=== PATIENT | male | born 1990 | race Caucasian/White ===

== ENCOUNTER 2016-11-24 17:10 | Emergency (ER) | payer OTHER ==
[2016-11-24] MEDS ORDERED: Lidocaine PATCH 5%* 1 PATCH TRANSDERM ONE (17:35)
--- NOTE | 2016-11-24 17:51 | ED ---
Back Pain - HPI Summary HPI Summary: The patient is a 26 year old male presenting to ED for complaint of "I think I tore my back shoveling." Reports worsening low back pain with history of chronic back pain for "10 years." Additional complaint of left upper toothache "for a long time." Denies fever, foul taste or odor, inability to swallow, trismus, abdominal complaint, vomiting, diarrhea, urinary symtoms, fecal or urinary incontinence, paresthesias, unilateral weakness. Patient denies past medical history. Is s/p tonsillectomy. FH of mother with "back problems." SH: Admits to smoking and recreational dilaudid use "off the street." Per review of prior [facility] admission, history of polysubstance abuse and multiple narcotic OD. - History of Current Complaint Chief Complaint: EDBackInjuryPain Stated Complaint: BACK PAIN Time Seen by Provider: 11/24/16 17:15 Pain Intensity: 8 - Allergies/Home Medications Allergies/Adverse Reactions: Allergies Allergy/AdvReac Type Severity Reaction Status Date / Time No Known Allergies Allergy Verified 04/29/16 00:51 PMH/Surg Hx/FS Hx/Imm Hx Sensory History: Reports: Hx Contacts or Glasses Opthamlomology History: Reports: Hx Contacts or Glasses Psychiatric History: Reports: Hx Anxiety, Hx Attention Deficit Hyperactivity Disorder, Hx Inpatient Treatment, Hx Substance Abuse Denies: Hx Eating Disorder, Hx Panic Disorder, Hx Post Traumatic Stress Disorder, Hx Schizophrenia, Hx Bipolar Disorder, Hx Suicide Attempt, Hx of Violent Episodes Against Others, Other Psychiatric Issues/Disorders Infectious Disease History: Denies: Traveled Outside the [place] in Last 30 Days - Family History Known Family History: Positive: Other - Anxiety, depression - - Social History Alcohol Use: Occasionally Hx Substance Use: Yes Substance Use Type: Reports: Marijuana, Prescribed Substance Use Comment - Amount & Last Used: OVERUSE OF PRESCRIPTION DRUGS Hx Tobacco Use: Yes Smoking Status (MU): Light Every Day Tobacco Smoker Review of Systems Constitutional: Negative Gastrointestinal: Negative Genitourinary: Negative Negative: dysuria, frequency, hematuria, incontinence Positive: Myalgia. Negative: Edema Skin: Negative Negative: Rash Neurological: Negative Negative: Weakness, Paresthesia, Numbness All Other Systems Reviewed And Are Negative: Yes Physical Exam Triage Information Reviewed: Yes Vital Signs On Initial Exam: Initial Vitals Temp Pulse Resp BP Pulse Ox 98.7 F 83 16 130/80 100 11/24/16 17:14 11/24/16 17:14 11/24/16 17:14 11/24/16 17:14 11/24/16 17:14 Vital Signs Reviewed: Yes Appearance: Positive: Well-Appearing, No Pain Distress - speaking calmly without guarding or grimace; no acute distress, Well-Nourished Skin: Positive: Warm, Skin Color Reflects Adequate Perfusion, Dry Eyes: Positive: Normal - Anicteric ENT: Positive: Hearing grossly normal Neck: Positive: Supple, Nontender Respiratory/Lung Sounds: Positive: Clear to Auscultation, Breath Sounds Present. Negative: Decreased Breath Sounds, Rales, Rhonchi, Wheezes Cardiovascular: Positive: Normal - radial pulse 2+, RRR, S1, S2. Negative: Murmur, Rub, S3 Abdomen Description: Positive: Nontender, No Organomegaly, Soft. Negative: CVA Tenderness (R), CVA Tenderness (L), Distended, Guarding, Hepatomegaly, Splenomegaly Bowel Sounds: Positive: Present Musculoskeletal: Positive: Strength/ROM Intact - 5/5 muscle strength UE/LE bilaterally, Pain @ - mild lumbar paraspinous tenderness without palpable spasm Neurological: Positive: Normal, Sensory/Motor Intact, Reflexes Intact - brachioradialis and patellar 2+, Normal Gait, Babinski Bilateral - downward, Other - no foot drop Psychiatric: Positive: Normal AVPU Assessment: Alert - [place] Coma Scale Coma Scale Total: 15 Procedures - Procedure Summary Procedure Summary: Left superior alveolar dental block with bupivacaine 1mL without complication or complaint. Adequate pain relief in 1 minute after procedure. Diagnostics - Vital Signs Vital Signs Temp Pulse Resp BP Pulse Ox 11/24/16 17:14 98.7 F 83 16 130/80 100 - Laboratory Lab Statement: Any lab studies that have been ordered have been reviewed, and results considered in the medical decision making process. Back Pain Course/Dx - Course Assessment/Plan: Impression of exacerbation of chronic low back pain and chronic dental pain. Administered dental block with adequate dental pain relief. Rx lidocaine patches. Advised to continue with OTC ibuprofen, rest and icing. Given history of multiple OD of previously prescribed Dilaudid and stolen fentanyl patches from father, will not prescribe any controlled substance. Advised to follow-up with PCP in 1-2 weeks. - Diagnoses Provider Diagnoses: Lumbar strain, Chronic back pain, Dental caries Discharge - Discharge Plan Condition: Stable Disposition: HOME Prescriptions: Lidocaine PATCH 5%* [Lidoderm 5% Patch*] 1 patch TRANSDERM DAILY #10 patch Patient Education Materials: Low Back Strain (ED), Chronic Back Pain (ED), Toothache (ED) Referrals: Felisha Sloan MD [Primary Care Provider] -
[2016-11-24 18:16] VITALS: BP 126/80
[2016-11-24] MEDS ORDERED: Lidocaine Patch REMOVE* 1 NOTE MISC SCH (21:00)
== END 2016-11-24 18:14 | disposition home or self-care (01) ==
LOC: ED 17:10
DX: S39.012A Strain of muscle, fascia and tendon of lower back, initial encounter (principal); K02.9 Dental caries, unspecified; M54.9 Dorsalgia, unspecified; X50.3XXA Overexertion from repetitive movements, initial encounter; Y93.H1 Activity, digging, shoveling and raking; Y92.9 Unspecified place or not applicable; F17.210 Nicotine dependence, cigarettes, uncomplicated
CPT/HCPCS: 99281; A9270-GY

== ENCOUNTER 2016-12-13 17:17 | Emergency (ER) | payer OTHER ==
[2016-12-13] MEDS ORDERED: Ketorolac INJ* 30 MG/ML 1 ML VIAL IV PUSH ONE (17:39)
--- NOTE | 2016-12-13 17:56 | ED ---
Throat Pain/Nasal Congestion - HPI Summary HPI Summary: 26M w/ PMH of opioid dependence presents with right sided dental swelling for 2 days. He states that his molar on the lower right side of his mouth had been hurting him off and on for months. He states that two days ago he started to notice swelling in the area. The swelling has increased over the past two days. He denies any difficulty swallowing. He denies any neck pain, chest pain or SOB. He denies any fevers. He is on suboxone for drug rehab. He does not have a dentist at this time. - History of Current Complaint Chief Complaint: EDDentalPain Time Seen by Provider: 12/13/16 17:32 - Allergies/Home Medications Allergies/Adverse Reactions: Allergies Allergy/AdvReac Type Severity Reaction Status Date / Time Acetaminophen [From Tylenol] Allergy Hives Verified 12/13/16 17:30 Haloperidol [From Haldol] Allergy dystonia Verified 12/13/16 17:30 PMH/Surg Hx/FS Hx/Imm Hx Endocrine/Hematology History: Denies: Hx Anticoagulant Therapy Cardiovascular History: Denies: Hx Hypertension Sensory History: Reports: Hx Contacts or Glasses Opthamlomology History: Reports: Hx Contacts or Glasses Psychiatric History: Reports: Hx Anxiety, Hx Attention Deficit Hyperactivity Disorder, Hx Inpatient Treatment, Hx Substance Abuse Denies: Hx Eating Disorder, Hx Panic Disorder, Hx Post Traumatic Stress Disorder, Hx Schizophrenia, Hx Bipolar Disorder, Hx Suicide Attempt, Hx of Violent Episodes Against Others, Other Psychiatric Issues/Disorders Infectious Disease History: No Infectious Disease History: Denies: Traveled Outside the [place] in Last 30 Days - Family History Known Family History: Positive: Other - Anxiety, depression - - Social History Alcohol Use: Occasionally Hx Substance Use: Yes Substance Use Type: Reports: Prescribed Substance Use Comment - Amount & Last Used: Pt states he's 2 weeks clean from heroin and is on suboxone Hx Tobacco Use: Yes Smoking Status (MU): Light Every Day Tobacco Smoker Review of Systems Negative: Fever Positive: Dental Pain, Other - swelling of right side of face Negative: Chest Pain Negative: Shortness Of Breath All Other Systems Reviewed And Are Negative: Yes Physical Exam Triage Information Reviewed: Yes Vital Signs On Initial Exam: Initial Vitals Temp Pulse Resp BP Pulse Ox 98.3 F 101 16 146/76 100 12/13/16 17:21 12/13/16 17:21 12/13/16 17:21 12/13/16 17:21 12/13/16 17:21 Vital Signs Reviewed: Yes Appearance: Positive: Well-Appearing Skin: Positive: Warm, Dry Eyes: Positive: Normal, EOMI, CATRACHITO, Conjunctiva Clear ENT: Positive: Pharynx normal, TMs normal. Negative: Trismus, Muffled/hoarse voice Dental: Positive: Percussion Tenderness @ - 30, Other - swelling along mandible Neck: Positive: Supple, Nontender, No Lymphadenopathy Respiratory/Lung Sounds: Positive: Clear to Auscultation, Breath Sounds Present Cardiovascular: Positive: Normal, RRR - [place] Coma Scale Coma Scale Total: 15 Diagnostics - Vital Signs Vital Signs Temp Pulse Resp BP Pulse Ox 12/13/16 17:21 98.3 F 101 16 146/76 100 - Laboratory Result Diagrams: 12/13/16 17:45 12/13/16 17:45 Lab Statement: Any lab studies that have been ordered have been reviewed, and results considered in the medical decision making process. - CT maxillary facial CT Interpretation: Positive (See Comments) CT Interpretation Completed By: Radiologist EENT Course/Dx - Course Course Of Treatment: 26M presents with right side facial swelling for 2 days. had dental pain on tooth 30 off and on for months. denies any fever, chest pain , or SOB. on exam neg trismus. swelling over manidible with percussion tenderness 30. neck nontender. will CT and get labs and give clindamycin. CT shows possible abscess. labs WBC 13, lactic normal. will have continue clindamycin and follow up with oral surgery. discussed pain options that can only give ibuprofen due to being on suboxone. patient understands and agrees with plan - Differential Diagnoses Differential Diagnoses: Dental Abscess, Dental Caries, Fractured Tooth - Diagnoses Provider Diagnoses: Dental abscess Discharge - Discharge Plan Condition: Good Disposition: HOME Prescriptions: Clindamycin CAP* [Cleocin 150 MG CAP*] 150 mg PO TID #87 cap Ibuprofen TAB* [Motrin TAB* 800 MG] 800 mg PO Q6H #25 tab Patient Education Materials: Dental Abscess (ED) Referrals: Felisha Sloan MD [Primary Care Provider] - Goldy Flores MD [Doctor of Dental Medicine] - Phi Sol MD [Doctor of Dental Medicine] - Additional Instructions: Follow up with oral surgery as soon as possible Take antibiotics: 3 tablets three times a day for 10 days Use ibuprofen every 6 hours for pain Avoid hard, crunchy food until seen by dentist Return to ED if develop fever, shortness of breath, chest pain, or any new or worsening symptoms
[2016-12-13 18:09] LABS: Hematocrit 42 % (42-52); Hemoglobin 13.7 g/dl (14.0-18.0); Mean Corpuscular HGB Conc 33 g/dl (31-36); Mean Corpuscular Hemoglobin 28 pg (27-31); Mean Corpuscular Volume 86 fL (80-94); Mean Platelet Volume 9 um3 (7.4-10.4); Red Blood Count 4.84 10^6/ul (4.0-5.4); Red Cell Distribution Width 14 % (10.5-15)
[2016-12-13 18:21] LABS: Albumin 4.7 g/dL (3.2-5.2); BUN/Creatinine Ratio 16.9 (8-20); Calcium 10.2 mg/dL (8.6-10.3); EGFR African American 131.9 (>60); EGFR Non-African American 102.5 (>60); Globulin 3.6 g/dL (2-4); Total Bilirubin 0.4 mg/dL (0.2-1.0); Total Protein 8.3 g/dL (6.4-8.9)
[2016-12-13] MEDS ORDERED: Iohexol 300* (CONTRAST) 10 ML SDV IV ONE (18:23)
--- NOTE | 2016-12-13 19:01 | RAD ---
INDICATION: Right-sided facial swelling. COMPARISON: There are no prior studies available for comparison. TECHNIQUE: Contiguous axial sections of the axial images of the facial bones were obtained and reconstructed in the coronal and sagittal planes. FINDINGS: Soft tissue swelling is noted adjacent to the horizontal ramus of the mid mandible on the right side. There are numerous carious lesions present within the teeth. There is also periapical disease adjacent to several incisor and molar teeth present in the maxilla and mandible with a large cystic lesion with mild peripheral enhancement present adjacent to the first and second molar teeth in the mandible on the right side. This cystic lesion measures 2.0 x 1.7 x 1.4 cm in size and may represent a prominent abscess or a cystic mass. There is mild mucosal thickening within the maxillary and frontal sinuses and moderate mucosal thickening within the ethmoid sinus. There is a nodular area in the inferior portion of the sphenoid sinus suggestive of a mucous retention cyst or polyp measuring 1.5 x 0.8 cm in size. The mastoid air cells and middle ear cavities appear clear. There are mildly prominent submandibular lymph nodes present on the right side measuring up to 0.8 cm in transverse dimension. No other enlarged lymph nodes are seen. The epiglottis and aryepiglottic folds appear to be within normal limits. The retropharyngeal soft tissues appear normal. IMPRESSION: DIFFUSE CARIOUS LESIONS PRESENT THROUGHOUT THE TEETH WELL PERIAPICAL DISEASE WITH A DOMINANT CYSTIC LESION ADJACENT TO THE FIRST AND SECOND MOLAR TEETH IN THE MANDIBLE ON THE RIGHT SIDE MOST CONSISTENT WITH AN ABSCESS OR A CYSTIC MASS. RECOMMEND DENTAL CONSULTATION FOR FURTHER EVALUATION.
[2016-12-13] MEDS ORDERED: Clindamycin 600 MG IVPREMIX(* 600 MG/50 ML SDV IV ONE (19:14)
[2016-12-13 21:05] VITALS: BP 119/82
== END 2016-12-13 21:10 | disposition home or self-care (01) ==
LOC: ED 17:17
DX: K04.7 Periapical abscess without sinus (principal); K08.89 Other specified disorders of teeth and supporting structures; F17.210 Nicotine dependence, cigarettes, uncomplicated
CPT/HCPCS: 36415; 70487; 80053; 83605; 85025; 96374; 99283; J1885; Q9967

== ENCOUNTER 2016-12-15 11:57 | Emergency (ER) | payer OTHER ==
[2016-12-15 12:06] VITALS: BP 125/73
[2016-12-15] MEDS ORDERED: metroNIDAZOLE IV 500 MG/100ML* 500 MG/100 ML BAG IVPB ONE (14:47)
[2016-12-15] MEDS ORDERED: Morphine INJ* 2 MG/ML 1 ML SYRINGE IV ONE (14:47)
--- NOTE | 2016-12-15 15:18 | ED ---
Throat Pain/Nasal Congestion - HPI Summary HPI Summary: Patient is a 26yo M presenting to ED with 4 days of worsening right sided dental pain and cheek swelling. He was seen in the ED 2 days ago and was diagnosed with a dental abscess. CT maxillofacial performed which showed possible abscess or a cystic mass. He was given IV antibiotics Clindamycin and PO Clindamycin as a prescription as well as Ibuprofen. He has a history of opioid dependence and has recently been on suboxone but today states he has not had any in several days. Denies dysphagia but cannot open or close his mouth fully so denies eating anything x 2 days and has been drinking only minimally. Denies any neck pain, SOB, chest pain or pressure, FAITH or weakness. Denies chills and sweats or fevers. He is currently in drug rehab and states he does not have a dentist. He is requesting pain management. - History of Current Complaint Chief Complaint: EDDentalPain Time Seen by Provider: 12/15/16 13:08 Hx Obtained From: Patient Onset/Duration: Sudden Onset Severity: Severe Associated Signs And Symptoms: Positive: Negative Cough: Nonproductive - Epiglottits Risk Factors Epiglottis Risk Factors: Negative - Allergies/Home Medications Allergies/Adverse Reactions: Allergies Allergy/AdvReac Type Severity Reaction Status Date / Time Acetaminophen [From Tylenol] Allergy Hives Verified 12/13/16 17:30 Haloperidol [From Haldol] Allergy dystonia Verified 12/13/16 17:30 PMH/Surg Hx/FS Hx/Imm Hx Previously Healthy: Yes - drug use and on suboxone Endocrine/Hematology History: Denies: Hx Anticoagulant Therapy Cardiovascular History: Denies: Hx Hypertension Sensory History: Reports: Hx Contacts or Glasses Opthamlomology History: Reports: Hx Contacts or Glasses Psychiatric History: Reports: Hx Anxiety, Hx Attention Deficit Hyperactivity Disorder, Hx Inpatient Treatment, Hx Substance Abuse Denies: Hx Eating Disorder, Hx Panic Disorder, Hx Post Traumatic Stress Disorder, Hx Schizophrenia, Hx Bipolar Disorder, Hx Suicide Attempt, Hx of Violent Episodes Against Others, Other Psychiatric Issues/Disorders Infectious Disease History: No Infectious Disease History: Denies: Traveled Outside the [place] in Last 30 Days - Family History Known Family History: Positive: Other - Anxiety, depression - - Social History Occupation: Unemployed Lives: With Family Alcohol Use: Occasionally Hx Substance Use: Yes Substance Use Type: Reports: Prescribed Substance Use Comment - Amount & Last Used: Pt states he's 2 weeks clean from heroin and is on suboxone Hx Tobacco Use: Yes Smoking Status (MU): Light Every Day Tobacco Smoker Review of Systems Constitutional: Negative Positive: Dental Pain - swelling Cardiovascular: Negative Respiratory: Negative Gastrointestinal: Negative Skin: Negative Neurological: Negative Psychological: Normal All Other Systems Reviewed And Are Negative: Yes Physical Exam Triage Information Reviewed: Yes Vital Signs On Initial Exam: Initial Vitals Temp Pulse Resp BP Pulse Ox 98 F 78 16 125/73 100 12/15/16 12:04 12/15/16 12:04 12/15/16 12:04 12/15/16 12:04 12/15/16 12:04 Vital Signs Reviewed: Yes Appearance: Positive: Well-Nourished, Pain Distress Skin: Positive: Warm Head/Face: Positive: Normal Head/Face Inspection Eyes: Positive: CATRACHITO, Conjunctiva Clear Dental: Positive: Percussion Tenderness @ - right sided upper and lower jaw tenderness, Gross Decay/Caries @ - throughout, Dental Fracture @, Abscess @ - right lower mandible on tooth 20 Respiratory/Lung Sounds: Positive: Clear to Auscultation, Breath Sounds Present Cardiovascular: Positive: Normal, RRR Musculoskeletal: Positive: Normal, Strength/ROM Intact Neurological: Positive: Alert, Oriented to Person Place, Time, CN Intact II-III , Speech Normal Psychiatric: Positive: Normal Diagnostics - Vital Signs Vital Signs Temp Pulse Resp BP Pulse Ox 12/15/16 15:02 20 12/15/16 12:04 98 F 78 16 125/73 100 - Laboratory Lab Statement: Any lab studies that have been ordered have been reviewed, and results considered in the medical decision making process. EENT Course/Dx - Course Course Of Treatment: Consult with Dr Ackerman for patient d/t outpatient failure of Clindamycin. Dr. Flores recommended addition of Metronidazole and to follow up in his clinic. Will begin IV metronidazole in ED and morphine. Unable to give outpatient management d/t opioid use and addiction. Will encourage Ibuprofen. Patient OK to follow up and agrees to Ibuprofen. DIFFUSE CARIOUS LESIONS PRESENT THROUGHOUT THE TEETH WELL PERIAPICAL. DISEASE WITH A DOMINANT CYSTIC LESION ADJACENT TO THE FIRST AND SECOND MOLAR TEETH IN THE. MANDIBLE ON THE RIGHT SIDE MOST CONSISTENT WITH AN ABSCESS OR A CYSTIC MASS. RECOMMEND. DENTAL CONSULTATION FOR FURTHER EVALUATION. Rx for Metronidazole given. Dental abscess/ lesions seen over area of concern. Erythema at site of pain. No drainage from area. Several dental caries, cavities, crowding and broken teeth throughout. Pain on palpation over mandible. No TMJ tenderness. 10/10 pain with opening and closing mouth. Slight trismus. Poor dental hygiene and outpatient dental care. - Differential Diagnoses Differential Diagnoses: Dental Abscess, Dental Caries, Periodontic Abscess, Periodontic Disease, Other - Periapical abscess, pulpal infection, pulpitis, pericoronitis - Diagnoses Provider Diagnoses: Dental abscess Discharge - Discharge Plan Condition: Stable Disposition: HOME Prescriptions: Metronidazole [Flagyl 500 MG TAB] 500 mg PO QID #40 tab MDD 4 Patient Education Materials: Dental Abscess (ED) Referrals: Negrita Rooney MD [Primary Care Provider] - Goldy Flores MD [Doctor of Dental Medicine] - Additional Instructions: You have been diagnosed with dental pain with infection. Salt water rinses several times per day will improve healing time. Ibuprofen 600mg three times daily with meals for discomfort. Follow up with a dentist for routine care to prevent recurrence of infections. Follow up with Dr. Flores. Call office tomorrow. Use both antibiotics as directed. DO NOT DRINK ALCOHOL WHILE TAKING THESE MEDICATIONS. If fever, worsening pain or swelling develops, see your PCP, dentist or come back to the Emergency Department. If you develop difficulty breathing, swallowing or feel like your throat is closing up, come back to ED immediately. Images - Images Dental: 1 - dental abscess
[2016-12-15] MEDS ORDERED: Ondansetron INJ* 2 MG/ML VIAL IV ONE (16:10)
[2016-12-15] MEDS ORDERED: Ketorolac INJ* 30 MG/ML 1 ML VIAL IV ONE (16:10)
[2016-12-15] MEDS ORDERED: Morphine INJ* 4 MG/ML 1 ML SYRINGE IV ONE (16:10)
[2016-12-15 16:12] LABS: Hematocrit 39 % (42-52); Mean Corpuscular HGB Conc 33 g/dl (31-36); Mean Corpuscular Hemoglobin 29 pg (27-31); Mean Corpuscular Volume 86 fL (80-94); Mean Platelet Volume 9 um3 (7.4-10.4); Red Blood Count 4.53 10^6/ul (4.0-5.4); Red Cell Distribution Width 14 % (10.5-15); White Blood Count 11.8 10^3/ul (3.5-10.8)
[2016-12-15 16:35] LABS: Albumin 4.5 g/dL (3.2-5.2); C Reactive Protein 90.61 mg/L (< 5.00); Calcium 9.7 mg/dL (8.6-10.3); EGFR African American 131.9 (>60); EGFR Non-African American 102.5 (>60); Globulin 3.4 g/dL (2-4); Potassium 4.7 mmol/L (3.5-5.0); Total Bilirubin 0.3 mg/dL (0.2-1.0); Total Protein 7.9 g/dL (6.4-8.9)
== END 2016-12-15 19:31 | disposition home or self-care (01) ==
LOC: ED 11:57
DX: K04.7 Periapical abscess without sinus (principal); K08.89 Other specified disorders of teeth and supporting structures; F17.210 Nicotine dependence, cigarettes, uncomplicated
CPT/HCPCS: 36415; 80053; 83605; 85025; 86140; 96374; 96375; 99282; J1885; J2270; J2405

== ENCOUNTER 2017-02-11 23:47 | Emergency (ER) | payer OTHER ==
[2017-02-12 01:31] LABS: Hematocrit 38 % (42-52); Hemoglobin 12.7 g/dl (14.0-18.0); Mean Corpuscular HGB Conc 34 g/dl (31-36); Mean Corpuscular Hemoglobin 29 pg (27-31); Mean Corpuscular Volume 86 fL (80-94); Mean Platelet Volume 8 um3 (7.4-10.4); Red Cell Distribution Width 14 % (10.5-15); White Blood Count 11.6 10^3/ul (3.5-10.8)
[2017-02-12 01:38] LABS: Urine Bacteria 1+ (Absent); Urine Bilirubin Negative (Negative); Urine Glucose Negative (Negative); Urine Nitrite Negative (Negative)
[2017-02-12 01:45] LABS: ALT 92 U/L (7-52); AST 50 U/L (13-39); Albumin 4.5 g/dL (3.2-5.2); Alkaline Phosphatase 95 U/L (34-104); Anion Gap 8 mmol/L (2-11); BUN/Creatinine Ratio 12.8 (8-20); Benzodiazepine Urine Screen Presumptive Positive (None Detect); Blood Urea Nitrogen 12 mg/dL (6-24); CO2 Carbon Dioxide 26 mmol/L (22-32); Chloride 101 mmol/L (101-111); Creatine Kinase 604 U/L (10-223); EGFR African American 123.8 (>60); EGFR Non-African American 96.3 (>60); Globulin 3.4 g/dL (2-4); Glucose 109 mg/dL (70-100); Potassium 3.5 mmol/L (3.5-5.0); Sodium 135 mmol/L (133-145); Total Protein 7.9 g/dL (6.4-8.9)
[2017-02-12 02:17] LABS: Acetaminophen < 15 mcg/mL; Alcohol < 10 mg/dL (<10); Salicylate < 2.50 mg/dL (<30)
[2017-02-12 02:27] LABS: TSH (Thyroid Stimulating Horm) 3.16 mcIU/mL (0.34-5.60)
--- NOTE | 2017-02-12 05:26 | ED ---
Marco Antonio Bennett Rebecca, scribed for Vikram Dukes on 02/12/17 at 0018 . Substance Abuse/Use - HPI Summary HPI Summary: Pt is a 26 y/o M BIBA who presents to ED s/p IV heroin use tonight at 1700. Pt denies any complaints at this time, including CP, SOB. Denies any cocaine or EtOH use. Pt reports "my mother is worried that I'm going to tonight," and that is why she called EMS, per pt. Per EMS, pt slept on the floor of [facility] for a few hours before returning home. - History Of Current Complaint Chief Complaint: EDSubstanceAbuse Stated Complaint: SUBSTANCE ABUSE Time Seen by Provider: 02/11/17 23:58 Hx Obtained From: Patient, EMS Ingestion History: Type/Name Of Drug - Heroin, Approximate Time Of Ingestion - 1700 Overdose Characteristics: IV Timing Of Abuse: Binge Use Severity Currently: None Associated Signs And Symptoms: Negative - Allergies/Home Medications Allergies/Adverse Reactions: Allergies Allergy/AdvReac Type Severity Reaction Status Date / Time Acetaminophen [From Tylenol] Allergy Hives Verified 02/11/17 23:49 Haloperidol [From Haldol] Allergy dystonia Verified 02/11/17 23:49 PMH/Surg Hx/FS Hx/Imm Hx Endocrine/Hematology History: Denies: Hx Anticoagulant Therapy Cardiovascular History: Denies: Hx Hypertension Sensory History: Reports: Hx Contacts or Glasses Opthamlomology History: Reports: Hx Contacts or Glasses Psychiatric History: Reports: Hx Anxiety, Hx Attention Deficit Hyperactivity Disorder, Hx Inpatient Treatment, Hx Substance Abuse Denies: Hx Eating Disorder, Hx Panic Disorder, Hx Post Traumatic Stress Disorder, Hx Schizophrenia, Hx Bipolar Disorder, Hx Suicide Attempt, Hx of Violent Episodes Against Others, Other Psychiatric Issues/Disorders - Immunization History Date of Tetanus Vaccine: utd Date of Influenza Vaccine: utd Infectious Disease History: No Infectious Disease History: Denies: Traveled Outside the [place] in Last 30 Days - Family History Known Family History: Positive: Other - Anxiety, depression - Social History Alcohol Use: Occasionally Hx Substance Use: Yes Substance Use Type: Reports: Heroin, Prescribed Hx Tobacco Use: Yes Smoking Status (MU): Light Every Day Tobacco Smoker Review of Systems Negative: Chest Pain Negative: Shortness Of Breath All Other Systems Reviewed And Are Negative: Yes Physical Exam - Summary Physical Exam Summary: Appearance: Well appearing, no pain distress Skin: warm, dry, reflects adequate perfusion Head/face: normal Eyes: EOMI, CATRACHITO ENT: normal Neck: supple, nontender Resp: CTA, breath sounds present Cardio: RRR, pulses symm Abd: nontender, soft Bowel: present Musc: normal, strength/ROM intact Neuro: normal, sensory motor intact, A&Ox3 Triage Information Reviewed: Yes Vital Signs On Initial Exam: Initial Vitals Temp Pulse Resp BP Pulse Ox 97.5 F 104 18 133/95 100 02/11/17 23:49 02/11/17 23:49 02/11/17 23:49 02/11/17 23:49 02/11/17 23:49 Vital Signs Reviewed: Yes Diagnostics - Vital Signs Vital Signs Temp Pulse Resp BP Pulse Ox 02/11/17 23:49 97.5 F 104 18 133/95 100 - Laboratory Result Diagrams: 02/12/17 01:19 02/12/17 01:19 Lab Statement: Any lab studies that have been ordered have been reviewed, and results considered in the medical decision making process. - EKG 0109 Cardiac Rate: NL - 76 bpm EKG Rhythm: Sinus Rhythm Course/Dx - Course Assessment/Plan: Pt is a 26 y/o M BIBA who presents to ED s/p IV heroin use at 1700 tonight. Pt has no complaints at this time, including CP and SOB. EKG reveals no acute findings. Toxicology reveals presumptive positive results for urine amphetamins, opiates and benzodiazepines. Pt will be D/C to home with a Dx of substance abuse. - Diagnoses Provider Diagnoses: Substance abuse Discharge - Discharge Plan Condition: Stable Disposition: HOME Referrals: Negrita Rooney MD [Primary Care Provider] - 3 Days The documentation as recorded by the Marco Antonio hager Rebecca accurately reflects the service I personally performed and the decisions made by , Vikram Dukes.
[2017-02-12 06:46] VITALS: BP 133/75
== END 2017-02-12 05:46 | disposition home or self-care (01) ==
LOC: ED 23:47
DX: F19.10 Other psychoactive substance abuse, uncomplicated (principal); F17.210 Nicotine dependence, cigarettes, uncomplicated
CPT/HCPCS: 36415; 80053; 80307; 80320; 80329; 81003; 81015; 82550; 84443; 84484; 85025; 86703; 87086; 93005; 99282; G0480

== ENCOUNTER 2017-03-18 17:40 | Emergency (ER) | payer OTHER ==
[2017-03-18 19:36] LABS: Hematocrit 39 % (42-52); Hemoglobin 13.1 g/dl (14.0-18.0); Mean Corpuscular HGB Conc 34 g/dl (31-36); Mean Corpuscular Hemoglobin 30 pg (27-31); Mean Corpuscular Volume 89 fL (80-94); Mean Platelet Volume 8 um3 (7.4-10.4); Red Blood Count 4.37 10^6/ul (4.0-5.4); Red Cell Distribution Width 13 % (10.5-15)
[2017-03-18 19:51] LABS: ALT 38 U/L (7-52); AST 26 U/L (13-39); Albumin 4.3 g/dL (3.2-5.2); Alkaline Phosphatase 82 U/L (34-104); Anion Gap 4 mmol/L (2-11); BUN/Creatinine Ratio 14.9 (8-20); Blood Urea Nitrogen 13 mg/dL (6-24); CO2 Carbon Dioxide 28 mmol/L (22-32); Calcium 9.6 mg/dL (8.6-10.3); Chloride 105 mmol/L (101-111); EGFR African American 135.4 (>60); EGFR Non-African American 105.3 (>60); Globulin 3.5 g/dL (2-4); Glucose 92 mg/dL (70-100); Potassium 4.3 mmol/L (3.5-5.0); Sodium 137 mmol/L (133-145); Total Protein 7.8 g/dL (6.4-8.9)
[2017-03-18 20:11] LABS: Acetaminophen < 15 mcg/mL; Alcohol < 10 mg/dL (<10); Salicylate < 2.50 mg/dL (<30)
--- NOTE | 2017-03-18 20:23 | ED ---
Marco Antonio Bennett Rebecca, scribed for Kin Washington MD on 03/18/17 at 1935 . Substance Abuse/Use - HPI Summary HPI Summary: Pt is a 26 y/o M BIBA who presents to ED for overdose. When asked, pt initially denies taking anything, then confirms taking Xanax and Oxycodone. He is not forthcoming with answers due to stuporous disposition. Level 5 caveat due to unresponsiveness. - History Of Current Complaint Chief Complaint: EDOverdose Stated Complaint: OVERDOSE Time Seen by Provider: 03/18/17 19:33 Hx From Patient Unobtainable Due To: Altered Mental Status - Unresponsiveness Ingestion History: Type/Name Of Drug - Oxycodone and Xanax Character: Stuporous - Allergies/Home Medications Allergies/Adverse Reactions: Allergies Allergy/AdvReac Type Severity Reaction Status Date / Time Acetaminophen [From Tylenol] Allergy Hives Verified 02/11/17 23:49 Haloperidol [From Haldol] Allergy dystonia Verified 02/11/17 23:49 PMH/Surg Hx/FS Hx/Imm Hx Endocrine/Hematology History: Denies: Hx Anticoagulant Therapy Cardiovascular History: Denies: Hx Hypertension Sensory History: Reports: Hx Contacts or Glasses Opthamlomology History: Reports: Hx Contacts or Glasses Psychiatric History: Reports: Hx Anxiety, Hx Attention Deficit Hyperactivity Disorder, Hx Inpatient Treatment, Hx Substance Abuse Denies: Hx Eating Disorder, Hx Panic Disorder, Hx Post Traumatic Stress Disorder, Hx Schizophrenia, Hx Bipolar Disorder, Hx Suicide Attempt, Hx of Violent Episodes Against Others, Other Psychiatric Issues/Disorders - Immunization History Date of Tetanus Vaccine: utd Date of Influenza Vaccine: utd Infectious Disease History: No Infectious Disease History: Denies: Traveled Outside the [place] in Last 30 Days - Family History Known Family History: Positive: Other - Anxiety, depression - Social History Alcohol Use: Occasionally Hx Substance Use: Yes Substance Use Type: Reports: Heroin Substance Use Comment - Amount & Last Used: Pt on suboxone, used heroin today Hx Tobacco Use: Yes Smoking Status (MU): Light Every Day Tobacco Smoker Review of Systems - ROS Summary Review of Systems Summary: Level 5 caveat due to unresponsiveness Positive: Other - OD - Xanax and oxycodone All Other Systems Reviewed And Are Negative: No Physical Exam Triage Information Reviewed: Yes Vital Signs On Initial Exam: Initial Vitals Temp Pulse Resp BP Pulse Ox 98.6 F 95 15 123/84 100 03/18/17 17:47 03/18/17 17:47 03/18/17 17:47 03/18/17 17:47 03/18/17 17:47 Vital Signs Reviewed: Yes Appearance: Positive: Well-Appearing, No Pain Distress Skin: Positive: Warm Head/Face: Positive: Normal Head/Face Inspection Eyes: Positive: CATRACHITO ENT: Positive: Hearing grossly normal Neck: Positive: Supple Respiratory/Lung Sounds: Positive: Clear to Auscultation, Breath Sounds Present Cardiovascular: Positive: RRR Abdomen Description: Positive: Nontender, Soft Bowel Sounds: Positive: Present Neurological: Positive: Sensory/Motor Intact Psychiatric: Positive: Affect/Mood Appropriate - Car Coma Scale Coma Scale Total: 15 Diagnostics - Vital Signs Vital Signs Temp Pulse Resp BP Pulse Ox 03/18/17 18:11 89 15 95 03/18/17 17:47 98.6 F 95 16 123/84 93 - Laboratory Lab Results: Lab Results 03/18/17 03/18/17 03/18/17 Range/Units 19:28 19:28 19:28 WBC 8.0 (3.5-10.8) 10^3/ul RBC 4.37 (4.0-5.4) 10^6/ul Hgb 13.1 L (14.0-18.0) g/dl Hct 39 L (42-52) % MCV 89 (80-94) fL MCH 30 (27-31) pg MCHC 34 (31-36) g/dl RDW 13 (10.5-15) % Plt Count 210 (150-450) 10^3/ul MPV 8 (7.4-10.4) um3 Neut % (Auto) 52.0 (38-83) % Lymph % (Auto) 34.8 (25-47) % Edmunds % (Auto) 8.6 (1-9) % Eos % (Auto) 3.7 (0-6) % Baso % (Auto) 0.9 (0-2) % Absolute Neuts (auto) 4.1 (1.5-7.7) 10^3/ul Absolute Lymphs (auto) 2.8 (1.0-4.8) 10^3/ul Absolute Monos (auto) 0.7 (0-0.8) 10^3/ul Absolute Eos (auto) 0.3 (0-0.6) 10^3/ul Absolute Basos (auto) 0.1 (0-0.2) 10^3/ul Absolute Nucleated RBC 0 10^3/ul Nucleated RBC % 0 Sodium 137 (133-145) mmol/L Potassium 4.3 (3.5-5.0) mmol/L Chloride 105 (101-111) mmol/L Carbon Dioxide 28 (22-32) mmol/L Anion Gap 4 (2-11) mmol/L BUN 13 (6-24) mg/dL Creatinine 0.87 (0.67-1.17) mg/dL Est GFR ( Amer) 135.4 (>60) Est GFR (Non-Af Amer) 105.3 (>60) BUN/Creatinine Ratio 14.9 (8-20) Glucose 92 (70-100) mg/dL Lactic Acid 0.5 (0.5-2.0) mmol/L Calcium 9.6 (8.6-10.3) mg/dL Total Bilirubin 0.40 (0.2-1.0) mg/dL AST 26 (13-39) U/L ALT 38 (7-52) U/L Alkaline Phosphatase 82 (34-104) U/L Total Protein 7.8 (6.4-8.9) g/dL Albumin 4.3 (3.2-5.2) g/dL Globulin 3.5 (2-4) g/dL Albumin/Globulin Ratio 1.2 (1-3) Salicylates < 2.50 (<30) mg/dL Acetaminophen < 15 mcg/mL Serum Alcohol < 10 (<10) mg/dL Result Diagrams: 03/18/17 19:28 03/18/17 19:28 Lab Statement: Any lab studies that have been ordered have been reviewed, and results considered in the medical decision making process. - EKG 1802 Cardiac Rate: NL - 74 bpm EKG Rhythm: Sinus Rhythm EKG Interpretation: No STEMI Re-Evaluation - Re-Evaluation First Eval Re-Evaluation Time: 21:28 Change: Improved Comment: Pt is ambulating well. pt denies si/hi Course/Dx - Course Assessment/Plan: Pt is a 26 y/o M BIBA who presents to ED for overdose. When asked, pt initially denies taking anything, then confirms taking Xanax and Oxycodone. He is not forthcoming with answers due to stuporous disposition. Level 5 caveat due to unresponsiveness. EKG reveals no acute findings. Pt will be D/C to home with Dx of polysubstance abuse. He understands and agrees. - Diagnoses Provider Diagnoses: Polysubstance abuse Discharge - Discharge Plan Condition: Stable Disposition: HOME Patient Education Materials: Polysubstance Abuse (ED) Referrals: Negrita Rooney MD [Primary Care Provider] - 3 Days The documentation as recorded by the Marco Antonio hager Rebecca accurately reflects the service I personally performed and the decisions made by me, Kin Washington MD.
[2017-03-18 21:36] LABS: Urine Bilirubin Negative (Negative); Urine Glucose Negative (Negative); Urine Nitrite Negative (Negative)
[2017-03-18 22:12] VITALS: BP 130/82
[2017-03-18 22:23] LABS: Benzodiazepine Urine Screen Presumptive Positive (None Detect)
== END 2017-03-18 21:15 | disposition home or self-care (01) ==
LOC: ED 17:40
DX: F19.10 Other psychoactive substance abuse, uncomplicated (principal); R41.82 Altered mental status, unspecified; F17.210 Nicotine dependence, cigarettes, uncomplicated
CPT/HCPCS: 36415; 80053; 80307; 80320; 80329; 81003; 83605; 85025; 93005; 99283; G0480

== ENCOUNTER 2017-03-28 21:22 | Emergency (ER) | payer OTHER ==
[2017-03-28 22:51] VITALS: BP 136/91
[2017-03-29] MEDS ORDERED: Penicillin VK TAB* 250 MG PO ONE (00:48)
--- NOTE | 2017-03-29 01:09 | ED ---
Marco Antonio Bennett Rebecca, scribed for Kin Washington MD on 03/29/17 at 0100 . Complex/Multi-Sys Presentation - HPI Summary HPI Summary: Pt is a 26 y/o M who presents to ED c/o dental pain and swelling. Pain began a few days ago and has been constant since onset with right-sided facial swelling starting this morning. Pain is currently severe, ranked 8/10. Sx aggravated and alleviated by nothing. Additionally c/o fever. Last seen by a dentist a few months ago. - History Of Current Complaint Chief Complaint: EDDentalPain Time Seen by Provider: 03/29/17 00:45 Hx Obtained From: Patient Onset/Duration: Lasting Days, Still Present Timing: Constant Severity Initially: Severe Location: Pain At: - Dental pain Aggravating Factor(s): Nothing Alleviating Factor(s): Nothing Associated Signs And Symptoms: Positive: Fever, Other - R-sided facial swelling - Allergies/Home Medications Allergies/Adverse Reactions: Allergies Allergy/AdvReac Type Severity Reaction Status Date / Time Acetaminophen [From Tylenol] Allergy Hives Verified 02/11/17 23:49 Haloperidol [From Haldol] Allergy dystonia Verified 02/11/17 23:49 PMH/Surg Hx/FS Hx/Imm Hx Endocrine/Hematology History: Denies: Hx Anticoagulant Therapy Cardiovascular History: Denies: Hx Hypertension Sensory History: Reports: Hx Contacts or Glasses Opthamlomology History: Reports: Hx Contacts or Glasses Psychiatric History: Reports: Hx Anxiety, Hx Attention Deficit Hyperactivity Disorder, Hx Inpatient Treatment, Hx Substance Abuse Denies: Hx Eating Disorder, Hx Panic Disorder, Hx Post Traumatic Stress Disorder, Hx Schizophrenia, Hx Bipolar Disorder, Hx Suicide Attempt, Hx of Violent Episodes Against Others, Other Psychiatric Issues/Disorders - Immunization History Date of Tetanus Vaccine: utd Date of Influenza Vaccine: utd Infectious Disease History: No Infectious Disease History: Denies: Traveled Outside the [place] in Last 30 Days - Family History Known Family History: Positive: Other - Anxiety, depression - Social History Alcohol Use: None Hx Substance Use: Yes Substance Use Type: Reports: Prescribed Substance Use Comment - Amount & Last Used: Pt on suboxone, used heroin today Hx Tobacco Use: Yes Smoking Status (MU): Light Every Day Tobacco Smoker Review of Systems Positive: Fever Positive: Dental Pain, Other - R-sided facial swelling All Other Systems Reviewed And Are Negative: Yes Physical Exam Triage Information Reviewed: Yes Vital Signs On Initial Exam: Initial Vitals Temp Pulse Resp BP Pulse Ox 100.2 F 98 18 124/87 100 03/28/17 21:23 03/28/17 21:23 03/28/17 21:23 03/28/17 21:23 03/28/17 21:23 Vital Signs Reviewed: Yes Appearance: Positive: Well-Appearing, No Pain Distress Skin: Positive: Warm Head/Face: Positive: Other - mild rt facial swelling Eyes: Positive: CATRACHITO Dental: Positive: Gross Decay/Caries @ - rt upper and lower teeth multiple caries Neck: Positive: Supple Respiratory/Lung Sounds: Positive: Breath Sounds Present Cardiovascular: Positive: RRR Neurological: Positive: Alert, Oriented to Person Place, Time Diagnostics - Vital Signs Vital Signs Temp Pulse Resp BP Pulse Ox 03/29/17 00:34 98.4 F 96 22 136/91 96 03/28/17 22:51 100.0 F 110 16 136/91 99 03/28/17 22:49 100.0 F 120 16 136/91 03/28/17 21:23 100.2 F 98 18 124/87 100 - Laboratory Lab Statement: Any lab studies that have been ordered have been reviewed, and results considered in the medical decision making process. Re-Evaluation - Re-Evaluation First Eval Comment: explained to pt will tx with antibiotics and nsaids. pt requesting stronger pain meds, explained to pt that he weas seen in ed 1 week ago for narcotic od and would not get narcotics here, advised to f/u with dentist farnaz Complex Multi-Symp Course/Dx Assessment/Plan: Pt is a 26 y/o M who presents to ED c/o dental pain for a few days and right-sided facial swelling that began this morning. Pain is currently severe, ranked 8/10. Sx aggravated and alleviated by nothing. Additionally c/o fever. Last seen by a dentist a few months ago. Pt will be D/C to home with Dx of dental pain and an Rx for Penicillin. He understands and agrees. - Diagnoses Provider Diagnoses: Pain, dental Discharge - Discharge Plan Condition: Stable Disposition: HOME Prescriptions: Penicillin VK TAB* [Penicillin VK 250 mg Tab*] 250 mg PO QID #30 tab Patient Education Materials: Toothache (ED) Referrals: Negrita Rooney MD [Primary Care Provider] - 3 Days The documentation as recorded by the Marco Antonio hager Rebecca accurately reflects the service I personally performed and the decisions made by me, Kin Washington MD.
== END 2017-03-29 01:12 | disposition home or self-care (01) ==
LOC: ED 21:22
DX: K08.89 Other specified disorders of teeth and supporting structures (principal); R50.9 Fever, unspecified; F17.210 Nicotine dependence, cigarettes, uncomplicated
CPT/HCPCS: 99282; A9270-GY

== ENCOUNTER 2017-11-30 11:47 | Emergency (ER) | payer OTHER ==
[2017-11-30 13:28] VITALS: BP 108/66
--- NOTE | 2017-12-04 13:29 | ED ---
Refugio Bennett Gabriel, scribed for Leo Leigh MD on 11/30/17 at 1157 . Substance Abuse/Use - HPI Summary HPI Summary: This patient is a 27 year old M BIBA to [facility] s/p overdose. EMS found the pt in the car unresponsive with a needle in his arm. He was given 2 of nasal Narcan which he responded to, he refused IV access. Currently the patient states he used heroin due to recent life stress along with him running out of suboxone due to taking too many. Patient denies SI, nausea, and injury. - History Of Current Complaint Stated Complaint: OVERDOSE Hx Obtained From: Patient Onset/Duration of Drug/ETOH Abuse: Hours Ingestion History: Type/Name Of Drug - Heroin Overdose Characteristics: IV Timing Of Abuse: Intermittent Severity Initially: Severe Severity Currently: Moderate Character: Stuporous Aggravating Factor(s): Recent Stress, Medication Non-compliance Associated Signs And Symptoms: Negative - SI and nausea - Allergies/Home Medications Allergies/Adverse Reactions: Allergies Allergy/AdvReac Type Severity Reaction Status Date / Time MS Acetaminophen Allergy Hives Verified 02/11/17 23:49 [From Tylenol] MS Haloperidol [From Haldol] Allergy dystonia Verified 02/11/17 23:49 PMH/Surg Hx/FS Hx/Imm Hx Endocrine/Hematology History: Denies: Hx Anticoagulant Therapy Cardiovascular History: Denies: Hx Hypertension Sensory History: Reports: Hx Contacts or Glasses Opthamlomology History: Reports: Hx Contacts or Glasses Psychiatric History: Reports: Hx Anxiety, Hx Attention Deficit Hyperactivity Disorder, Hx Inpatient Treatment, Hx Substance Abuse Denies: Hx Eating Disorder, Hx Panic Disorder, Hx Post Traumatic Stress Disorder, Hx Schizophrenia, Hx Bipolar Disorder, Hx Suicide Attempt, Hx of Violent Episodes Against Others, Other Psychiatric Issues/Disorders - Immunization History Date of Tetanus Vaccine: utd Date of Influenza Vaccine: utd - Family History Known Family History: Positive: Other - Anxiety, depression Negative: Respiratory Disease, Seizure Disorder - Social History Alcohol Use: None Hx Substance Use: Yes Substance Use Type: Reports: Heroin, Prescribed Substance Use Comment - Amount & Last Used: Pt on suboxone, used heroin today Hx Tobacco Use: Yes Smoking Status (MU): Light Every Day Tobacco Smoker Review of Systems Negative: Fever, Chills Negative: Erythema Negative: Sore Throat Negative: Chest Pain Negative: Shortness Of Breath, Cough Negative: Abdominal Pain, Vomiting, Nausea Negative: dysuria, hematuria Negative: Myalgia, Edema Negative: Rash Neurological: Negative - dizziness Psychological: Other - NEGATIVE SI All Other Systems Reviewed And Are Negative: Yes Physical Exam - Summary Physical Exam Summary: Constitutional: Well-developed, Well-nourished, mildly drowsy. (-) Distressed Skin: Warm, Dry HENT: Normocephalic; Atraumatic Eyes: Conjunctiva normal, pupils are 2mm Neck: Musculoskeletal ROM normal neck. (-) JVD, (-) Stridor, (-) Tracheal deviation Cardio: Rhythm regular, rate normal, Heart sounds normal; Intact distal pulses; The pedal pulses are 2+ and symmetric. Radial pulses are 2+ and symmetric. (-) Murmur Pulmonary/Chest wall: Effort normal. (-) Respiratory distress, (-) Wheezes, (-) Rales Abd: Soft, (-) Tenderness, (-) Distension, (-) Guarding, (-) Rebound Musculoskeletal: (-) Edema Lymph: (-) Cervical adenopathy Neuro: Alert, Oriented x3 Psych: Mood and affect Normal Triage Information Reviewed: Yes Vital Signs On Initial Exam: Initial Vitals Temp Pulse Resp BP Pulse Ox 98.8 F 112 20 97/77 99 11/30/17 11:51 11/30/17 11:51 11/30/17 11:51 11/30/17 11:51 11/30/17 11:51 Vital Signs Reviewed: Yes Diagnostics - Vital Signs Vital Signs Temp Pulse Resp BP Pulse Ox 11/30/17 11:51 98.8 F 112 20 97/77 99 - Laboratory Lab Statement: Any lab studies that have been ordered have been reviewed, and results considered in the medical decision making process. Re-Evaluation - Re-Evaluation First Eval Re-Evaluation Time: 12:13 Change: Unchanged Second Eval Re-Evaluation Time: 13:21 Change: Unchanged Comment: Pt is resting comfortably and his O2 is 97%. Third Eval Re-Evaluation Time: 13:51 Change: Improved Comment: Patient is alert, pupils are 4mm, and he is eating. I discussed the loss of tolerance and the dangers associated with heroin use, he understands Course/Dx - Course Assessment/Plan: This patient is a 27 year old M BIBA to [facility] s/p overdose. EMS found the pt in the car unresponsive with a needle in his arm. He was given 2 of nasal Narcan which he responded to, he refused IV access. Currently the patient states he used heroin due to recent life stress along with him running out of suboxone due to taking too many. Patient denies SI, nausea, and injury. The pt gave permission to contact doctor Jessenia. On numerous occasions I instructed him not to drive a vehicle due to his slightly impaired state. I discussed patient care with a nurse named Marlys from the [facility] and they state he can walk in and be seen any time before 1700. Patient will be discharged with prescription for Narcan and catapres and follow up from the [facility]. The patient is agreeable with this plan. - Diagnoses Provider Diagnoses: Heroin overdose - Physician Notifications Time Discussed With Above Provider: 12:00 Instructed by Provider To: Other - I discussed patient care with a nurse named Marlys from the [facility] and they state he can walk in and be seen anytime before 1700. Discharge - Sign-Out/Discharge Documenting (check all that apply): Discharge - Discharge Plan Condition: Stable Disposition: HOME Prescriptions: cloNIDine TAB* [Catapres 0.1 MG TAB*] 0.1 mg PO TID #21 tab Naloxone Nasal Riparius* [Narcan Nasal Riparius] 4 mg NASAL ONCE PRN #2 nasal.spr PRN Reason: Per Protocol Patient Education Materials: Opioid Overdose (ED) Additional Instructions: Please report to the [facility] before 5:00 PM today. RETURN TO THE EMERGENCY DEPARTMENT FOR CHANGING OR WORSENING SYMPTOMS. The documentation as recorded by the Refugio hager Gabriel accurately reflects the service I personally performed and the decisions made by me, Leo Leigh MD.
== END 2017-11-30 13:55 | disposition home or self-care (01) ==
LOC: ED 11:47
DX: T40.1X1A Poisoning by heroin, accidental (unintentional), initial encounter (principal); Y92.810 Car as the place of occurrence of the external cause; F90.9 Attention-deficit hyperactivity disorder, unspecified type; F41.9 Anxiety disorder, unspecified; Z88.6 Allergy status to analgesic agent; Z88.8 Allergy status to other drugs, medicaments and biological substances; F17.210 Nicotine dependence, cigarettes, uncomplicated
CPT/HCPCS: 99282